=== PATIENT | male | born 1985 | race African-American/Black ===

== ENCOUNTER 2021-09-27 16:11 | Emergency (ER) | payer SELFPAY ==
[2021-09-27 17:34] LABS: SARS-COV-2 RT PCR POSITIVE (NEGATIVE)
--- NOTE | 2021-09-27 17:56 | ER ---
Nurse's Notes [facility] Name: Gabino Last Age: 36 yrs Sex: Male : 1985 Arrival Date: 09/27/2021 Time: 16:16 Bed Waiting [facility] MD: Diagnosis: Acute upper respiratory infection, unspecified;SARS-associated coronavirus as the cause of diseases classified elsewhere Presentation: 09/27 16:17 Chief complaint: Patient states: nasal drainage and chills x 2days. Denies NVD. vg1 Coronavirus screen: Vaccine status: Patient reports being unvaccinated. Client denies travel out of the [place] in the last 14 days. Ebola Screen: Patient negative for fever greater than or equal to 101.5 degrees Fahrenheit, and additional compatible Ebola Virus Disease symptoms. Initial Sepsis Screen: Does the patient meet any 2 criteria? No. Patient's initial sepsis screen is negative. Does the patient have a suspected source of infection? No. Patient's initial sepsis screen is negative. Risk Assessment: Do you want to hurt yourself or someone else? Patient reports no desire to harm self or others. Onset of symptoms was September 25, 2021. 16:17 Method Of Arrival: Ambulatory vg1 16:17 Acuity: SELWYN 4 vg1 Triage Assessment: 16:19 General: Appears in no apparent distress. comfortable, Behavior is calm, cooperative. vg1 Pain: Denies pain. Respiratory: Airway is patent Respiratory effort is even, unlabored. Historical: - Allergies: 16:19 No Known Allergies; vg1 - Home Meds: 16:19 None [Active]; vg1 - PMHx: 16:19 None; vg1 - PSHx: 16:19 None; vg1 - Immunization history:: Client reports having NOT received the Covid vaccine. - Social history:: Smoking status: Patient reports the use of cigarette tobacco products, denies chronic smoking, but will smoke occasionally, Reported history of juuling and/or vaping. Vital Signs: 16:17 BP 146 / 98; Pulse 99; Resp 16; Temp 97.6; Pulse Ox 98% ; Weight 89.36 kg; Height 5 ft. vg1 10 in. (177.80 cm); Pain 0/10; 16:17 Body Mass Index 28.27 (89.36 kg, 177.80 cm) vg1 ED Course: 16:16 Patient arrived in ED. vg1 16:19 Triage completed. vg1 16:19 Arm band placed on. vg1 16:24 COVID swab sent to lab. Flu and/or RSV swab sent to lab. vg1 16:26 Pardeep Romo MD is Attending Physician. kdr Administered Medications: No medications were administered Outcome: 17:55 Discharge ordered by . kdr 18:12 Patient left the ED. vg1 Signatures: Pardeep Romo MD MD kdr Candi Arreola, RN RN vg1
--- NOTE | 2021-09-27 17:56 | EDPHYS ---
Physician Documentation [facility] Name: Gabino Last Age: 36 yrs Sex: Male : 1985 Arrival Date: 09/27/2021 Time: 16:16 Bed Waiting Private MD: ED Physician Pardeep Romo HPI: 09/28 07:44 This 36 yrs old Black Male presents to ER via Ambulatory with complaints of Flu kdr Symptoms. 07:44 The patient or guardian reports cough. The patient or guardian reports Congestion. kdr Onset: The symptoms/episode began/occurred gradually, 2 week(s) ago. Modifying factors: The symptoms are alleviated by nothing. the symptoms are aggravated by nothing. Associated signs and symptoms: The patient has no apparent associated signs or symptoms. Severity of symptoms: At their worst the symptoms were mild in the emergency department the symptoms are unchanged. The patient has not experienced similar symptoms in the past. The patient has not recently seen a physician. Patient presents with 2 days of nasal drainage and chills. She denies any nausea, vomiting or diarrhea. Patient reports being vaccinated for Covid and denies travel outside the [place] in the last 2 weeks. Historical: - Allergies: 09/27 16:19 No Known Allergies; vg1 - Home Meds: 16:19 None [Active]; vg1 - PMHx: 16:19 None; vg1 - PSHx: 16:19 None; vg1 - Immunization history:: Client reports having NOT received the Covid vaccine. - Social history:: Smoking status: Patient reports the use of cigarette tobacco products, denies chronic smoking, but will smoke occasionally, Reported history of juuling and/or vaping. ROS: 09/28 07:44 Constitutional: Negative for fever, chills, and weight loss, Eyes: Negative for injury, kdr pain, redness, and discharge, Neck: Negative for injury, pain, and swelling, Cardiovascular: Negative for chest pain, palpitations, and edema, Abdomen/GI: Negative for abdominal pain, nausea, vomiting, diarrhea, and constipation, Back: Negative for injury and pain, : Negative for injury, bleeding, discharge, and swelling, MS/Extremity: Negative for injury and deformity, Skin: Negative for injury, rash, and discoloration, Neuro: Negative for headache, weakness, numbness, tingling, and seizure activity. Psych: Negative for depression, anxiety, suicide ideation, homicidal ideation, and hallucinations, Allergy/Immunology: Negative for hives, rash, and allergies, Endocrine: Negative for neck swelling, polydipsia, polyuria, polyphagia, and marked weight changes, Hematologic/Lymphatic: Negative for swollen nodes, abnormal bleeding, and unusual bruising. Respiratory: Positive for cough, with no reported sputum, Negative for dyspnea on exertion, hemoptysis, orthopnea, pleurisy, shortness of breath, sputum production, wheezing. Exam: 07:44 Constitutional: This is a well developed, well nourished patient who is awake, alert, kdr and in no acute distress. Head/Face: Normocephalic, atraumatic. Chest/axilla: Normal chest wall appearance and motion. Nontender with no deformity. No lesions are appreciated. Abdomen/GI: Soft, non-tender, with normal bowel sounds. No distension or tympany. No guarding or rebound. No evidence of tenderness throughout. Back: No spinal tenderness. No costovertebral tenderness. Full range of motion. Skin: Warm, dry with normal turgor. Normal color with no rashes, no lesions, and no evidence of cellulitis. MS/ Extremity: Pulses equal, no cyanosis. Neurovascular intact. Full, normal range of motion. Neuro: Awake and alert, GCS 15, oriented to person, place, time, and situation. Cranial nerves II-XII grossly intact. Motor strength 5/5 in all extremities. Sensory grossly intact. Cerebellar exam normal. Normal gait. Psych: Awake, alert, with orientation to person, place and time. Behavior, mood, and affect are within normal limits. Vital Signs: 09/27 16:17 BP 146 / 98; Pulse 99; Resp 16; Temp 97.6; Pulse Ox 98% ; Weight 89.36 kg; Height 5 ft. vg1 10 in. (177.80 cm); Pain 0/10; 16:17 Body Mass Index 28.27 (89.36 kg, 177.80 cm) vg1 MDM: 17:55 Patient medically screened. kdr 09/28 07:44 Data reviewed: vital signs, nurses notes, lab test result(s), radiologic studies. kdr Counseling: I had a detailed discussion with the patient and/or guardian regarding: the historical points, exam findings, and any diagnostic results supporting the discharge/admit diagnosis, lab results, the need for outpatient follow up. 09/27 16:20 Order name: COVID-19/FLU A+B (Document "Date of Onset" if Symptomatic) vg1 Administered Medications: No medications were administered Disposition Summary: 09/27/21 17:55 Discharge Ordered Location: Home kdr Problem: new kdr Symptoms: have improved kdr Condition: Stable kdr Diagnosis - Acute upper respiratory infection, unspecified kdr - SARS-associated coronavirus as the cause of diseases classified elsewhere kdr Followup: kdr - With: Private Physician - When: 2 - 3 days - Reason: If symptoms return, Further diagnostic work-up, Recheck today's complaints, Continuance of care, Re-evaluation by your physician Discharge Instructions: - Discharge Summary Sheet kdr - Upper Respiratory Infection, Adult kdr - COVID-19 kdr - Things to Know about the COVID-19 Pandemic - [facility] kdr - 10 Things You Can Do to Manage Your COVID-19 Symptoms at Home - [facility] kdr - COVID-19: Quarantine vs. Isolation - [facility] kdr - Prevent the Spread of COVID-19 if You Are Sick - [facility] kdr Forms: - Medication Reconciliation Form kdr - Thank You Letter kdr Signatures: Dispatcher [employer] Pardeep Cramer MD MD kdr Candi Arreola RN RN vg1
[2021-09-27 18:28] VITALS: BP 146/98; TEMP 97.6; O2SAT 98
== END 2021-09-27 18:12 | disposition home or self-care (01) ==
LOC: ER 16:11
DX: U07.1 COVID-19 (principal); J06.9 Acute upper respiratory infection, unspecified
CPT/HCPCS: 0240U; 99282

== ENCOUNTER 2022-01-29 23:46 | Emergency (ER) | payer SELFPAY ==
[2022-01-30] MEDS ORDERED: ONDANSETRON 4 MG/2 ML VIAL ONE (02:00)
[2022-01-30] MEDS ORDERED: MORPHINE 4 MG/ML SYR ONE (02:00)
[2022-01-30 02:15] LABS: Urine Blood Negative (Negative); Urine Glucose Negative (Negative); Urine Protein Negative (Negative)
[2022-01-30 03:22] LABS: Absolute Lymphocytes (CBC) 2.2 K/uL (0.7-4.9); Hematocrit 46.2 % (39.6-49.0); Lymphocytes % 29.8 % (15.3-44.8); MPV 8.6 fL (7.6-11.3); RBC Red Blood Cell Count 5.71 M/uL (4.33-5.43)
[2022-01-30 03:26] LABS: Bilirubin Total 0.7 mg/dL (0.2-1.0); Potassium 3.7 mmol/L (3.5-5.1); Protein, Total 7.6 g/dL (6.4-8.2)
--- NOTE | 2022-01-30 04:36 | ER ---
Nurse's Notes [facility] Name: Gabino Last Age: 36 yrs Sex: Male : 1985 Arrival Date: 01/29/2022 Time: 23:51 Bed 10 Private MD: Diagnosis: Lower abdominal pain, unspecified Presentation: 01/30 00:08 Chief complaint: Patient states: Pain to bilateral groin over the past month, states on lp1 and off; Reports hernia surgery at [facility] about 7 months ago. Coronavirus screen: At this time, the client does not indicate any symptoms associated with coronavirus-19. Ebola Screen: No symptoms or risks identified at this time. Risk Assessment: Do you want to hurt yourself or someone else? Patient reports no desire to harm self or others. Onset of symptoms was January 30, 2022. 00:08 Acuity: SELWYN 3 lp1 00:08 Method Of Arrival: Ambulatory lp1 00:10 Initial Sepsis Screen: Does the patient meet any 2 criteria? No. Patient's initial lp1 sepsis screen is negative. Does the patient have a suspected source of infection? No. Patient's initial sepsis screen is negative. Historical: - Allergies: 00:09 No Known Allergies; lp1 - Home Meds: 00:09 None [Active]; lp1 - PMHx: 00:09 Hypertensive disorder; lp1 - PSHx: 00:09 Hernia repair; lp1 - Immunization history:: Adult Immunizations up to date, Client reports having NOT received the Covid vaccine. - Social history:: Smoking status: Patient reports the use of cigarette tobacco products, smokes one-half pack cigarettes per day. Screenin:44 Abuse screen: Denies threats or abuse. Nutritional screening: No deficits noted. bb Tuberculosis screening: No symptoms or risk factors identified. Fall Risk None identified. Assessment: 00:44 General: Appears in no apparent distress. Behavior is calm, cooperative. Pain: bb Complains of pain in abdomen Pain currently is 7 out of 10 on a pain scale. Pain began a month ago. Neuro: Level of Consciousness is awake, alert, obeys commands, Oriented to person, place, time, situation. Cardiovascular: Heart tones S1 S2 present Capillary refill < 3 seconds Patient's skin is warm and dry. Respiratory: Respiratory effort is even, unlabored, Respiratory pattern is regular. GI: Abdomen is flat, Bowel sounds present X 4 quads. Abd is soft X 4 quads. Derm: Skin is dry, Skin is normal, Skin temperature is warm. Musculoskeletal: Circulation, motion, and sensation intact. 02:00 Reassessment: Patient is alert, oriented x 3, equal unlabored respirations, skin bb warm/dry/pink. 03:06 Reassessment: Patient is alert, oriented x 3, equal unlabored respirations, skin bb warm/dry/pink. Patient states feeling better. Patient states symptoms have improved. 04:10 Reassessment: Patient is alert, oriented x 3, equal unlabored respirations, skin bb warm/dry/pink. awaiting CT results. 04:41 Reassessment: Patient is alert, oriented x 3, equal unlabored respirations, skin bb warm/dry/pink. pt verbalized understanding of and agrees to plan of care discharge instructions given pt ambulated with steady gait to exit. Vital Signs: 00:10 BP 126 / 102; Pulse 109; Resp 16; Temp 98.3(TE); Pulse Ox 100% on R/A; Weight 80.74 kg lp1 (R); Height 5 ft. 10 in. (177.80 cm); Pain 6/10; 04:11 BP 138 / 84; Pulse 91; Resp 16 S; Temp 98(O); Pulse Ox 100% on R/A; bb 00:10 Body Mass Index 25.54 (80.74 kg, 177.80 cm) lp1 ED Course: 01/29 23:51 Patient arrived in ED. kz 01/30 00:08 Arm band placed on left wrist. lp1 00:09 Triage completed. lp1 00:44 Bessy Clark, RAYA is Primary Nurse. bb 00:44 Patient has correct armband on for positive identification. bb 00:46 Elijah Espinosa MD is Attending Physician. 7 01:50 Urine collected: clean catch specimen, clear. bb 02:00 Initial lab(s) drawn, by me, sent to lab. Inserted saline lock: 20 gauge in right bb antecubital area, using aseptic technique. Blood collected. 04:26 CT Abd/Pelvis - IV Contrast Only In Process Unspecified. EDMS 04:42 No provider procedures requiring assistance completed. IV discontinued, intact, bb bleeding controlled, No redness/swelling at site. Pressure dressing applied. Administered Medications: 02:01 Drug: morphine 4 mg {Note: RASS 0.} Route: IVP; Site: right antecubital; bb 03:06 Follow up: Response: Pain is decreased; RASS: Alert and Calm (0) bb 02:01 Drug: Zofran (Ondansetron) 4 mg Route: IVP; Site: right antecubital; bb 03:06 Follow up: Response: No adverse reaction bb Outcome: 04:36 Discharge ordered by MD. gama 04:42 Discharged to home ambulatory. bb 04:42 Condition: stable 04:42 Discharge instructions given to patient, Instructed on discharge instructions, follow up and referral plans. medication usage, Demonstrated understanding of instructions, follow-up care, medications, Prescriptions given X 1. 04:42 Patient left the ED. bb Signatures: Dispatcher [employer] EDMS Bessy Clark RN RN bb Aminta Belle RN RN lp1 Elijah Espinosa MD MD mh7 Zapata, Kelly kz Corrections: (The following items were deleted from the chart) 00:10 00:09 PMHx: None; lp1 lp1
--- NOTE | 2022-01-30 04:36 | EDPHYS ---
Physician Documentation [facility] Name: Gabino Last Age: 36 yrs Sex: Male : 1985 Arrival Date: 01/29/2022 Time: 23:51 Bed 10 Private MD: ED Physician Elijah Espinosa HPI: 01/30 01:55 This 36 yrs old Black Male presents to ER via Ambulatory with complaints of Abdominal mh7 Pain. 01:55 The patient presents with abdominal pain right lower quadrant. Onset: The mh7 symptoms/episode began/occurred 4 week(s) ago. The symptoms do not radiate. 01:55 Associated signs and symptoms: Pertinent negatives: nausea, vomiting, and diarrhea, mh7 anorexia, blood in stools, chest pain, constipation, diarrhea, dysuria, fever, headache, hematuria, palpitations, shortness of breath, testicular pain, vomiting, vomiting blood. 01:55 The symptoms are described as intermittent, vague, waxing/waning. Modifying factors: mh7 The symptoms are alleviated by nothing, the symptoms are aggravated by nothing. Severity of pain: At its worst the pain was moderate 14 day(s) ago, in the emergency department the pain has improved moderately. Pain in similar location to right hernia repair that was done 7 months ago.. Historical: - Allergies: 00:09 No Known Allergies; lp1 - Home Meds: 00:09 None [Active]; lp1 - PMHx: 00:09 Hypertensive disorder; lp1 - PSHx: 00:09 Hernia repair; lp1 - Immunization history:: Adult Immunizations up to date, Client reports having NOT received the Covid vaccine. - Social history:: Smoking status: Patient reports the use of cigarette tobacco products, smokes one-half pack cigarettes per day. ROS: 01:55 Constitutional: Negative for fever, chills, and weight loss, Eyes: Negative for injury, mh7 pain, redness, and discharge, ENT: Negative for injury, pain, and discharge, Neck: Negative for injury, pain, and swelling, Cardiovascular: Negative for chest pain, palpitations, and edema, Respiratory: Negative for shortness of breath, cough, wheezing, and pleuritic chest pain, Back: Negative for injury and pain, : Negative for injury, bleeding, discharge, and swelling, MS/Extremity: Negative for injury and deformity, Skin: Negative for injury, rash, and discoloration, Neuro: Negative for headache, weakness, numbness, tingling, and seizure, Psych: Negative for depression, anxiety, suicide ideation, homicidal ideation, and hallucinations, Allergy/Immunology: Negative for hives, rash, and allergies, Endocrine: Negative for neck swelling, polydipsia, polyuria, polyphagia, and marked weight changes, Hematologic/Lymphatic: Negative for swollen nodes, abnormal bleeding, and unusual bruising. Exam: 01:55 Head/Face: Normocephalic, atraumatic. Eyes: Pupils equal round and reactive to light, mh7 extra-ocular motions intact. Lids and lashes normal. Conjunctiva and sclera are non-icteric and not injected. Cornea within normal limits. Periorbital areas with no swelling, redness, or edema. Neck: Trachea midline, no thyromegaly or masses palpated, and no cervical lymphadenopathy. Supple, full range of motion without nuchal rigidity, or vertebral point tenderness. No Meningismus. Chest/axilla: Normal chest wall appearance and motion. Nontender with no deformity. No lesions are appreciated. Cardiovascular: Regular rate and rhythm with a normal S1 and S2. No gallops, murmurs, or rubs. Normal PMI, no JVD. No pulse deficits. Respiratory: Lungs have equal breath sounds bilaterally, clear to auscultation and percussion. No rales, rhonchi or wheezes noted. No increased work of breathing, no retractions or nasal flaring. 01:55 Back: No spinal tenderness. No costovertebral tenderness. Full range of motion. Skin: Warm, dry with normal turgor. Normal color with no rashes, no lesions, and no evidence of cellulitis. MS/ Extremity: Pulses equal, no cyanosis. Neurovascular intact. Full, normal range of motion. Neuro: Awake and alert, GCS 15, oriented to person, place, time, and situation. Cranial nerves II-XII grossly intact. Motor strength 5/5 in all extremities. Sensory grossly intact. Cerebellar exam normal. Normal gait. Psych: Awake, alert, with orientation to person, place and time. Behavior, mood, and affect are within normal limits. 01:55 Constitutional: The patient appears in no acute distress, alert, awake, uncomfortable. 01:55 Abdomen/GI: Inspection: abdomen appears normal, Bowel sounds: normal, in all quadrants, Palpation: moderate abdominal tenderness, in the right lower quadrant, mass, is not appreciated, rebound tenderness, is not appreciated, voluntary guarding, is not appreciated, involuntary guarding, is not appreciated, no appreciated organomegaly, Rectal exam: the exam is deferred, because of patient request, Indicators: McBurney's point is not tender, Durbin's sign is negative, Rovsing's sign is negative, Obturator sign is negative, Psoas sign is negative, Liver: no appreciated palpable abnormalities, Hernia: not appreciated. Vital Signs: 00:10 BP 126 / 102; Pulse 109; Resp 16; Temp 98.3(TE); Pulse Ox 100% on R/A; Weight 80.74 kg lp1 (R); Height 5 ft. 10 in. (177.80 cm); Pain 6/10; 04:11 BP 138 / 84; Pulse 91; Resp 16 S; Temp 98(O); Pulse Ox 100% on R/A; bb 00:10 Body Mass Index 25.54 (80.74 kg, 177.80 cm) lp1 MDM: 04:34 Differential diagnosis: appendicitis, bowel obstruction, diverticulitis, non-specific mh7 abd pain, Pyelonephritis, Ureterolithiasis, urinary tract infection. Data reviewed: vital signs, nurses notes, lab test result(s), CBC, electrolytes, urinalysis, radiologic studies, CT scan. Data interpreted: Pulse oximetry: on room air is 100 %. Interpretation: normal. Counseling: I had a detailed discussion with the patient and/or guardian regarding: the historical points, exam findings, and any diagnostic results supporting the discharge/admit diagnosis, lab results, radiology results, the need for outpatient follow up, to return to the emergency department if symptoms worsen or persist or if there are any questions or concerns that arise at home. Response to treatment: the patient's symptoms have resolved after treatment, the patient's blood pressure is in an acceptable range, mental status has returned to baseline, the patient no longer shows bradycardia, the patient is not short of breath, the patient is not tachycardic, the patient's pain is gone, the patient's temperature has normalized. 04:36 Patient medically screened. mh7 01/30 01:49 Order name: CBC with Diff mh7 01/30 01:49 Order name: CMP [facility] 01/30 01:49 Order name: Lipase [facility] 01/30 03:27 Order name: Urine Dipstick-Ancillary; Complete Time: 03:58 EDMS 01/30 03:27 Order name: CBC with Automated Diff; Complete Time: 03:58 EDMS 01/30 03:27 Order name: Comprehensive Metabolic Panel; Complete Time: 03:58 EDMS 01/30 01:49 Order name: CT Abd/Pelvis - IV Contrast Only [facility] 01/30 01:49 Order name: IV Saline Lock; Complete Time: 02:15 [facility] 01/30 01:49 Order name: Labs collected and sent; Complete Time: 02:15 [facility] 01/30 01:49 Order name: Urine Dipstick-Ancillary (obtain specimen); Complete Time: 02:15 [facility] 01/30 03:27 Order name: Lipase; Complete Time: 03:58 EDMS 01/30 04:20 Order name: CREATININE WHOLE BLOOD EDMS Administered Medications: 02:01 Drug: morphine 4 mg {Note: RASS 0.} Route: IVP; Site: right antecubital; bb 03:06 Follow up: Response: Pain is decreased; RASS: Alert and Calm (0) bb 02:01 Drug: Zofran (Ondansetron) 4 mg Route: IVP; Site: right antecubital; bb 03:06 Follow up: Response: No adverse reaction bb Disposition Summary: 01/30/22 04:36 Discharge Ordered Location: Home [facility] Problem: an ongoing problem [facility] Symptoms: have improved [facility] Condition: Stable [facility] Diagnosis - Lower abdominal pain, unspecified [facility] Followup: [facility] - With: Private Physician - When: 1 - 2 days - Reason: Worsening of condition, Recheck today's complaints, Continuance of care, Re-evaluation by your physician Discharge Instructions: - Discharge Summary Sheet [facility] - Abdominal Pain, Adult, [id number] [facility] Forms: - Medication Reconciliation Form [facility] - Thank You Letter [facility] - Antibiotic Education [facility] - Prescription Opioid Use [facility] Prescriptions: - dicyclomine 20 mg Oral Tablet - take 1 tablet by ORAL route 4 times per day As needed; 20 tablet; Refills: 0, 7 Product Selection Permitted Signatures: Dispatcher [facility] Bessy Smith RN RN bb Aminta Belle RN RN lp1 Elijah Espinosa MD MD mh7 Corrections: (The following items were deleted from the chart) 00:10 00:09 PMHx: None; lp1 lp1
--- NOTE | 2022-01-30 11:14 | RAD REPORT ---
EXAM DESCRIPTION: CT - Abdomen Pelvis W Contrast - 01/30/2022 6:43 am CLINICAL HISTORY: RLQ ABD PAIN COMPARISON: None Available. TECHNIQUE: CT of the abdomen and pelvis performed following IV administration of iodinated contras t. This exam was performed according to our departmental dose-optimization program, which includes au tomated exposure control, adjustment of the mA and/or kV according to patient size and/or use of iter ative reconstruction technique. FINDINGS: Lung Bases: The visualized lung bases are clear. Bones: No destructive bone lesions identified. Abdomen: Liver: The liver has normal size and density. No intrahepatic biliary dilatation. Gallbladder: No calcified gallstones. Spleen, Pancreas, and Adrenal Glands: The spleen, pancreas, and adrenal glands are unremarkable. Kidneys: No hydronephrosis or obstructing calculus. Vasculature: The aorta and IVC have normal caliber and position. The portal vein is patent. The pro ximal visceral and renal arteries are patent. Stomach: The stomach and duodenum have normal course. Other: No free intraperitoneal air. No free fluid or lymphadenopathy. Pelvis: Bladder: Urinary bladder is unremarkable. Bowel: No dilated loops of large or small bowel. Appendix: Normal appendix. Pelvis: Prostate is not enlarged. IMPRESSION: 1. No acute inflammatory or obstructive process identified. Electronically signed by: Tejas Valladares 01/30/2022 4:21 AM CDT Due to temporary technical issues with the PACS/Fluency reporting system, reports are being signed by the in house radiologist without review as a courtesy to ensure prompt reporting. The interpreting r adiologist is fully responsible for the content of the report.
[2022-01-30 12:05] VITALS: O2SAT 100
[2022-01-30 12:06] VITALS: BP 138/84; TEMP 98
== END 2022-01-30 04:42 | disposition home or self-care (01) ==
LOC: ER 23:46
DX: R10.31 Right lower quadrant pain (principal); I10 Essential (primary) hypertension; F17.210 Nicotine dependence, cigarettes, uncomplicated
CPT/HCPCS: 36415; 74177; 80053; 81003; 82565; 83690; 85025; J2405; Q9967

== ENCOUNTER 2022-09-29 13:16 | Emergency (ER) | payer SELFPAY ==
--- NOTE | 2022-09-29 13:25 | ER ---
Nurse's Notes [facility] Name: Gabino Last Age: 37 yrs Sex: Male : 1985 Arrival Date: 09/29/2022 Time: 13:17 Bed Waiting Private MD: Diagnosis: Assessment: 09/29 13:20 Reassessment: Registration staff stated that patient started kicking chairs in the ss lobby soon after checking in and then stormed out of department and left. ED Course: 13:17 Patient arrived in ED. as 13:18 Fabricio Trivedi PA is PHCP. vance 13:18 Sukhdeep Colmenares MD is Attending Physician. vance 13:18 PHCP role handed off by Fabricio Trivedi PA kb 13:18 Khadijah Lemons FNP-C is PHCP. kb Administered Medications: No medications were administered Outcome: 13:24 Eloped from waiting room. ss 13:24 Eloped 13:25 Patient left the ED. ss Signatures: Khadijah Lemons FNP-C FNP-Fabricio Monge PA PA jmm Martinez, Amelia as Smirch, Shelby, RN RN ss Corrections: (The following items were deleted from the chart) 13:24 13:23 Reassessment: Registration staff stated that patient started kicking chairs in ss the lobby soon after checking in and then stormed out of department and left. ss
--- NOTE | 2022-09-30 13:25 | EDPHYS ---
Physician Documentation [facility] Name: Gabino Last Age: 37 yrs Sex: Male : 1985 Arrival Date: 09/29/2022 Time: 13:17 Bed Waiting Private MD: ED Physician MDM: 09/29 13:29 ED course: Pt entered ER while I was in triage with another pt. Signed in and sat down kb in the lobby for a couple of minutes when he got very angry. He began shouting and kicking the chairs then pushed through the exit doors and left. . Administered Medications: No medications were administered Disposition Summary: 09/29/22 13:25 Eloped Disposition: Before Triage ss Reason: (see nurse's notes) ss Signatures: Khaidjah Lemons, LATOSHA MORRISON-Nhi Vidal, RN RN ss
== END 2022-09-29 13:25 | disposition left against medical advice (07) ==
LOC: ER 13:16
DX: Z02.9 Encounter for administrative examinations, unspecified (principal)

== ENCOUNTER 2024-02-02 19:06 | Emergency (ER) | payer SELFPAY ==
--- NOTE | 2024-02-02 19:37 | ER ---
Nurse's Notes [facility] Name: Gabino Last Age: 38 yrs Sex: Male : 1985 Arrival Date: 02/02/2024 Time: 19:06 Bed IW2 Private MD: Diagnosis: ED Course: 02/01 19:07 Patient arrived in ED. im 19:10 Negrito Cortés PA is PHCP. cp 19:10 Camilo Andrade MD is Attending Physician. cp 19:18 Patient's name was called from ER [employer]. No response. km8 19:37 Patient's name was called from ER lobby. No response. Unable to locate patient. Will km8 disposition as left without being seen by a provider. Administered Medications: No medications were administered Outcome: 19:37 Patient left the ED. km8 Signatures: Negrito Cortés PA PA cp Mendoza, Itzel Mandie Rose RN RN km8
--- NOTE | 2024-02-02 19:37 | EDPHYS ---
Physician Documentation [facility] Name: Gabino Last Age: 38 yrs Sex: Male : 1985 Arrival Date: 02/02/2024 Time: 19:06 Bed IW2 Private MD: ED Physician Camilo Andrade MDM: 02/01 19:18 Patient medically screened. cp 19:19 ED course: name called in lobby, no answer at this time. cp Administered Medications: No medications were administered Disposition: 02/02 09:00 Co-signature as Attending Physician, Camilo Andrade MD I reviewed the patient's care rn provided by the Advanced Practice Provider and agree with the diagnosis and treatment plan. Disposition Summary: 02/02/24 19:37 Eloped Notes: Disposition: Before Triage km8 Reason: unknown km8 Signatures: Camilo Andrade MD MD rn Negrito Cortés PA PA cp Marx, Katie, RN RN km8
== END 2024-02-02 19:37 | disposition left against medical advice (07) ==
LOC: ER 19:06
DX: Z02.9 Encounter for administrative examinations, unspecified (principal)

== ENCOUNTER 2024-07-12 14:46 | Emergency (ER) | payer SELFPAY ==
[2024-07-12] MEDS ORDERED: SODIUM CHL 0.9% 1000 ML BAG IV ONE (14:47)
[2024-07-12] MEDS ORDERED: EPINEPHrine 1 MG/10 ML SYR IV ONE (14:47)
[2024-07-12] MEDS ORDERED: AMIODARONE HCL 150 MG/3 ML INJ IV ONE (14:47)
[2024-07-12 15:26] LABS: PT Prothrombin Time 12.5 SECONDS (9.4-12.5); PTT, Activated Partial Thromb 35.1 SECONDS (24.3-36.9); Protime INR 1.12
[2024-07-12 15:35] LABS: Anion Gap 11.8 mEq/L (5.0-15.0); Troponin High Sensitivity 236.2 pg/mL (<58.9)
[2024-07-12 15:41] LABS: Potassium 6.8 mEq/L (3.5-5.1)
[2024-07-12 15:55] LABS: Absolute Basophils 0.1 K/uL (0-0.5); Absolute Eosinophils 0.1 K/uL (0-0.5); Absolute Monocytes 2.1 K/uL (0.1-1.3); Basophils % 0.7 % (0-1.3); Hematocrit 41.7 % (39.6-49.0); Hemoglobin 12.5 g/dL (13.6-17.9); Lymphocytes % 24.2 % (15.3-44.8); MCH 26.6 pg (27.0-35.0); MCV 88.6 fL (80-100); MPV 8.8 fL (7.6-11.3); Monocytes % 17.1 % (3.3-12.3); Nucleated Red Blood Cells % 0.3 % (0-0); Platelets 169 thou/uL (152-406); RBC Red Blood Cell Count 4.71 M/uL (4.33-5.43); Red Cell Distribution Width 16.6 % (12.1-15.2)
--- NOTE | 2024-07-12 16:43 | ER ---
Nurse's Notes [facility] Name: Gabino Last Age: 39 yrs Sex: Male : 1985 Arrival Date: 07/12/2024 Time: 14:46 Bed 2 Private MD: Diagnosis: Cardiac arrest, cause unspecified Presentation: 07/12 14:42 Chief complaint: EMS states: PT FOUND UNRESPONSIVE BY GIRLFRIEND. UNKNOWN DOWN TIME. 0 db PULSE. ASYSTOLE RHYTHM. CPR BY 1411. NARCAN 2MG AND EPI 2 GIVEN BY EMS. BLOOD SUGAR 102, 103. INTUBATED 7.5 ET TUBE. 23 AT THE TEETH. 18 G LAC. PT ARRIVED CPR IN PROGRESS. Care prior to arrival: CPR via thumper performed by EMS Placed on backboard. Medication(s) given: Glucose check: 103 Oxygen administered. via AMBU bag. Compressions began prior to arrival. 14:42 Method Of Arrival: EMS: [facility] db 14:42 Acuity: SELWYN 1 db 14:42 Care prior to arrival: Assisted ventilation. db Historical: - PMHx: 15:16 Hypertensive disorder; db - PSHx: 15:16 hernia repair; db Screenin:42 Abuse screen: UNABLE TO ASSESS. Nutritional screening: UNABLE TO ASSESS. Tuberculosis db screening: UNABLE TO ASSESS. Assessment: 14:42 CPR assessment: unresponsive, pulses present w/ compressions. Cardiac rhythm is V fib. db General: Behavior is unresponsive. Neuro: Level of Consciousness is unresponsive, Oriented to none. 14:42 Reassessment: ARRIVAL AUTOPULSE, BY [facility]. db 14:44 Reassessment: PULSE CHECK CPR RESUMED ASYSTOLE, PUPILS FIXED AND DILATED. db 14:46 Reassessment: PULSE CHECK, NO PULSE, EPI GIVEN 1 MG LEFT AC. db 14:49 Reassessment: PULSE CHECK V FIB SHOCKED, NO PULSE, CPR CONTINUED. db 14:49 Reassessment: 1 LITER BOLUS NS RAC. db 14:50 Reassessment: EPI 1 MG LAC. db 14:51 Reassessment: PULSE CHECK, NO PULSE V FIB RHYTHM. SHOCKED 200J. db 14:52 Reassessment: AMIODARONE 300 MG LAC. db 14:53 Reassessment: 1 MG EPI GIVEN. db 14:53 Reassessment: PULSE CHECK. NO PULSE. V FIB RHYTHM. SHOCKED 200 J. db 14:55 Reassessment: PULSE CHECK. NO PULSE. V FIB RHYTHM. SHOCKED 200 J. db 14:56 Reassessment: 1 MG EPI GIVEN LAC. db 14:58 Reassessment: NO PULSE VFIB RHYTHM. SHOCKED 200J. db 15:00 Reassessment: PULSE CHECK. VFIB. SHOCKED 200J. db 15:02 Reassessment: PULSE CHECK VIB. SHOCKED 200J. db 15:04 Reassessment: PULSE CHECK . ASYSTOLE. TIME OF PRONOUNCED BY DR. CHRISTINA. db 15:34 Reassessment: [employer] CONTACTED. . db 15:54 Reassessment: [employer] SANDER AND FINISHER ARRIVAL. db 16:06 Reassessment: PER [employer] SANDER AND FINISHER PATIENT ORDERED TO GO TO [facility] db OFFICE. 16:32 Reassessment: FAMILY AT BEDSIDE. db 17:00 Reassessment: PT RELEASED TO [facility] BY MORTUARY TRANSPORTED ACCOMPANIED BY WHEAT COMBINE DRIVER. db Vital Signs: 14:42 Weight 89.36 kg; Height 5 ft. 10 in. ; db 14:42 Body Mass Index 28.27 (89.36 kg, 177.8 cm) db [place] Coma Score: 14:42 Eye Response: none(1). Motor Response: none(1). Verbal Response: none(1). Total: 3. db ED Course: 14:42 Patient has correct armband on for positive identification. db 14:42 Suctioned orally. db 14:42 Maintain EMS IV. Dressing intact. Good blood return noted. Site clean \T\ dry. Gauge \T\ db site: 20 MG RAC. 14:42 Assisted provider with intubation using 7.5 mm ETT via oral route. ET tube secured at db 23cm at the teeth. INTUBATED BY EMS COUNSELING SPECIALIST. 14:46 Inserted saline lock: 20 gauge in right antecubital area, using aseptic technique. db Blood collected. Flushed with 10 mL NS. 14:50 Patient arrived in ED. bd 14:50 Ferrera cath inserted, using sterile technique, 16 Fr., by ED staff, balloon inflated, to db gravity drainage. Assist ventilation with Ambu bag. 15:06 Eliana Cabello RN is Primary Nurse. db 15:08 Quinton Christina DO is Attending Physician. ms3 15:10 Triage completed. db 15:10 [facility] to have the trial court judge siebel consultant come to er. bd 16:41 Quinton Christina DO is Pronouncing Provider. ms3 17:12 Eliana Cabello, RN is Primary Nurse. db Administered Medications: No medications were administered Outcome: 14:42 Outcome Patient db 14:42 Patient : Time of 15:04 Pronounced by Quinton Christina DO 14:42 Condition: 17:12 Patient left the ED. db Signatures: Clau Vallejo bd Quinton Christina DO DO ms3 Eliana Cabello, RN RN db Corrections: (The following items were deleted from the chart) 15:31 14:42 BP 179 / 163; Pulse 115bpm; CPR VITALS; db db 15:37 14:42 Patient : Time of 13:04 Pronounced by Quinton Christina DO db db 16:00 15:30 Reassessment: LIFE GIFT CONTACTED. db db 17:08 14:42 Chief complaint: EMS states: PT FOUND UNRESPONSIVE BY GIRLFRIEND. UNKNOWN DOWN db TIME. 0 PULSE. CPR BY 1411. NARCAN 2MG AND EPI 2 GIVEN BY EMS. BLOOD SUGAR 102, 103. INTUBATED 7.5 ET TUBE. 23 AT THE TEETH. 18 G LAC. PT ARRIVED CPR IN PROGRESS db 17:10 17:00 Reassessment: [facility] STAFF AT PATIENT BEDSIDE. db db 17:11 17:00 Reassessment: PT RELEASED TO [facility] . db db
--- NOTE | 2024-07-12 16:43 | EDPHYS ---
Physician Documentation [facility] Name: Gabino Last Age: 39 yrs Sex: Male : 1985 Arrival Date: 07/12/2024 Time: 14:46 Bed 2 Private MD: ED Physician Quinton Mcwilliams HPI: 07/12 15:09 This 39 yrs old Black Male presents to ER via Unassigned with complaints of CPR. ms3 15:09 39-year-old male with past medical history of diabetes presents to the emergency ms3 department via [facility] after being found unresponsive and down in an RV living room by his girlfriend. EMS states on their arrival patient did not have a pulse. EMS administered 2 mg Narcan, 2 rounds of epinephrine. EMS states they had performed CPR for 20 minutes. EMS states patient was down for 15 minutes prior to arrival. EMS states no bystander CPR was performed being performed on their arrival. Historical: - PMHx: 15:16 Hypertensive disorder; db - PSHx: 15:16 hernia repair; db ROS: 15:18 Unable to obtain ROS due to Unresponsive, ms3 Exam: 15:18 Constitutional: The patient appears obviously ill, ms3 15:18 Head/face: Exam is negative for obvious evidence of injury or deformity, swelling, 15:18 Eyes: Pupils: are fixed and dilated, 15:18 Neck: External neck: is normal, no acute changes, 15:18 Cardiovascular: Rate: No pulse, Pulses: not palpable, 15:18 Respiratory: Patient intubated. Bilateral breath sounds present, 15:18 Abdomen/GI: Inspection: abdomen appears normal, Palpation: soft, 15:18 Musculoskeletal/extremity: 15:18 Skin: injury, is not appreciated, Cool to touch. Vital Signs: 14:42 Weight 89.36 kg; Height 5 ft. 10 in. ; db 14:42 Body Mass Index 28.27 (89.36 kg, 177.8 cm) db [place] Coma Score: 14:42 Eye Response: none(1). Motor Response: none(1). Verbal Response: none(1). Total: 3. db MDM: 15:08 Patient medically screened. ms3 15:18 Differential diagnosis: arrythmia, cardiac arrest, respiratory arrest, overdose. Data ms3 reviewed: vital signs, nurses notes. I considered the following discharge prescriptions or medication management in the emergency department Medications were administered in the Emergency Department. See MAR. Independent interpretation of the following test(s) in the Emergency Department monitoring coordinator: rate is 0 beats/min, Rhythm is ventricular fibrillation, Interpretation: ventricular fibrillation. ED course: Patient arrived to the emergency department with audible [place]. Initial pulse check patient was without pulses and epinephrine was given. Please refer to nursing code documentation for code details. Patient time of 1304 when patient's rhythm changed from persistent V-fib to asystole.. 07/12 14:56 Order name: Basic Metabolic Panel; Complete Time: 15:56 bp 07/12 14:56 Order name: CBC with Diff; Complete Time: 15:56 bp 07/12 14:56 Order name: Troponin HS; Complete Time: 15:56 bp 07/12 15:00 Order name: PT-INR; Complete Time: 15:27 ss 07/12 15:00 Order name: Ptt, Activated; Complete Time: 15:27 ss 07/12 14:56 Order name: IV Saline Lock; Complete Time: 14:57 bp Administered Medications: No medications were administered Disposition: 15:18 . ms3 15:26 Chart complete. ms3 Disposition Summary: 07/12/24 16:42 Patient Notes: Location: [employer] ms3 Pronouncing Physician: Quinton Mcwilliams ms3 Time of : 13:04 07/12/2024 ms3 Diagnosis - Cardiac arrest, cause unspecified ms3 Discharge Instructions: - Discharge Summary Sheet db Forms: - SBAR form db Signatures: Dispatcher [employer] EDMS Calixto Gomez, RN RN bp Quinton Mcwilliams, DO ms3 Eliana Cabello RN RN db Corrections: (The following items were deleted from the chart) 15:00 15:00 PROTIME (+INR)+COAG.LAB.BRZ ordered. EDMS EDMS 15:00 15:00 PTT, ACTIVATED+COAG.LAB.BRZ ordered. EDMS EDMS 15:15 14:56 Chest Single View+RAD.RAD.BRZ ordered. EDMS EDMS 16:34 14:56 Cardiac monitoring ordered. bp db 16:34 14:56 EKG - Nurse/Tech ordered. bp db 16:34 14:56 Labs collected and sent ordered. bp db 16:34 14:56 Oxygen Per Protocol ordered. bp db 16:34 14:56 O2 Sat Monitoring ordered. bp db
== END 2024-07-12 17:12 ==
LOC: ER 14:46
DX: I46.9 Cardiac arrest, cause unspecified (principal)
CPT/HCPCS: 31500; 36415; 51702; 80048; 84484; 85025; 85610; 85730; 92950; 99285; J0171; J0282; J7030